=== PATIENT | female | born 1985 | race American Indian/Alaskan Native ===

== ENCOUNTER 2019-12-10 22:05 | Emergency (ER) | payer MEDICAID ==
[2019-12-10 22:16] VITALS: BP 105/83
[2019-12-10 22:42] LABS: Basophils % (Auto) 1.2 % (0.0-1.8); Eosinophils % (Auto) 0.9 % (0.0-4.3); Hematocrit 41.6 % (30.3-42.9); Hemoglobin 13.7 gm/dl (10.1-14.3); Lymphocytes # (Auto) 1.2 K/mm3 (1.2-5.4); Mean Corpuscular HGB Conc 33 % (30-34); Mean Corpuscular Volume 93 fl (79-97); Monocytes # (Auto) 0.5 K/mm3 (0.0-0.8); Monocytes % (Auto) 14.1 % (0.0-7.3); Platelet Count 194 K/mm3 (140-440); Red Blood Count 4.48 M/mm3 (3.65-5.03); Red Cell Distribution Width 12.6 % (13.2-15.2)
[2019-12-10 22:52] LABS: Bacteria,Urine 1+ /HPF (Negative); Bilirubin,Urine NEG (Negative); Blood,Urine NEG (Negative); Color,Urine Yellow (Yellow); Protein,Urine <15 mg/dL mg/dL (Negative)
[2019-12-10 22:58] LABS: Alanine Aminotransferase 19 units/L (7-56); Albumin 3.8 g/dL (3.9-5); BUN/Creatinine Ratio 7; Blood Urea Nitrogen 5 mg/dL (7-17); Calcium 8.5 mg/dL (8.4-10.2); Hemolysis Index 9
[2019-12-11] MEDS ORDERED: ACETAMINOPHEN 500 MG TAB PO ONE (00:19)
[2019-12-11] MEDS ORDERED: IBUPROFEN 600 MG TAB PO ONE (00:19)
[2019-12-11] MEDS ORDERED: CYCLOBENZAPRINE 10 MG TAB PO ONE (00:19)
[2019-12-11] MEDS ORDERED: ONDANSETRON 4 MG/2 ML INJ IV ONE (00:30)
[2019-12-11] MEDS ORDERED: FAMOTIDINE 20 MG/2 ML INJ IV ONE (00:30)
[2019-12-11] MEDS ORDERED: SODIUM CHLORIDE 0.9% 1000 ML 1,000 ML IV ONE (00:30)
--- NOTE | 2019-12-11 02:52 | Emergency Department Report ---
ED General Adult HPI - General Chief complaint: Nausea/Vomiting/Diarrhea Stated complaint: DEHYDRATION,MUSCLE LOWER BODY PAIN Source: patient Mode of arrival: Ambulatory Limitations: No Limitations - History of Present Illness Initial comments: Patient is a 34-year-old -[place] female with no past medical history except asthma who presents to the ED with complaint of acute onset persistent bilateral hip pain that radiates to the bilateral thighs, intermittent nausea a nd vomiting with diarrhea for 5 days. Patient also complains of persistent intermittent nasal and sinus congestion and frontal sinus pressure. Patient however states that the nausea and vomiting resolved about 24 hours ago but the bilateral hip pain has been persistent. Patient states that she has not been able to eat because of lack of appetite and suspected that she may have been dehydrated. Patient denies fall, traumatic injury, heavy lifting, abdominal pain, chest pain, dysuria, urinary frequency and urgency, fever, chills, cough, back pain, hematuria or vaginal bleeding. MD Complaint: Nausea, vomiting, diarrhea; bilateral hip and leg pains -: Sudden, days(s) (5) Location: abdomen, lower extremity (Bilateral hip and leg cramps) Radiation: non-radiation Severity scale (0 -10): 4 Quality: aching, sharp Consistency: constant Improves with: none Worsens with: none Associated Symptoms: denies other symptoms, loss of appetite, nausea/vomiting. denies: confusion, chest pain, cough, diaphoresis, fever/chills, malaise, rash, seizure, shortness of breath, syncope, weakness Treatments Prior to Arrival: none - Related Data Previous Rx's Medication Instructions Recorded Last Taken Type Cyclobenzaprine [Flexeril] 10 mg PO Q8H PRN #21 tablet 12/11/19 Unknown Rx Famotidine [Pepcid] 20 mg PO BID #30 tablet 12/11/19 Unknown Rx Ibuprofen [Motrin] 800 mg PO Q8HR PRN #30 tablet 12/11/19 Unknown Rx Ondansetron [Zofran Odt] 4 mg PO Q6HR PRN #15 tab.rapdis 12/11/19 Unknown Rx Allergies Allergy/AdvReac Type Severity Reaction Status Date / Time No Known Allergies Allergy Unverified 12/10/19 22:17 ED Review of Systems ROS: Stated complaint: DEHYDRATION,MUSCLE LOWER BODY PAIN Other details as noted in HPI Constitutional: denies: chills, fever Eyes: denies: eye pain, eye discharge, vision change ENT: congestion. denies: ear pain, throat pain Respiratory: denies: cough, shortness of breath, wheezing Cardiovascular: denies: chest pain, palpitations Endocrine: no symptoms reported Gastrointestinal: nausea, vomiting, diarrhea. denies: abdominal pain Genitourinary: denies: urgency, dysuria, discharge Musculoskeletal: arthralgia (Bilateral hip and leg pain). denies: back pain, joint swelling Skin: denies: rash, lesions Neurological: headache. denies: weakness, paresthesias Psychiatric: denies: anxiety, depression Hematological/Lymphatic: denies: easy bleeding, easy bruising ED Past Medical Hx - Past Medical History Previous Medical History?: Yes Hx Asthma: Yes - Surgical History Past Surgical History?: Yes Additional Surgical History: C-Sec X 2 - Social History Smoking Status: Never Smoker Substance Use Type: None - Medications Home Medications: Home Medications Medication Instructions Recorded Confirmed Last Taken Type Cyclobenzaprine [Flexeril] 10 mg PO Q8H PRN #21 tablet 12/11/19 Unknown Rx Famotidine [Pepcid] 20 mg PO BID #30 tablet 12/11/19 Unknown Rx Ibuprofen [Motrin] 800 mg PO Q8HR PRN #30 tablet 12/11/19 Unknown Rx Ondansetron [Zofran Odt] 4 mg PO Q6HR PRN #15 tab.rapdis 12/11/19 Unknown Rx ED Physical Exam - General Limitations: No Limitations General appearance: alert, in no apparent distress - Head Head exam: Present: atraumatic, normocephalic, normal inspection - Eye Eye exam: Present: normal appearance, PERRL, EOMI Pupils: Present: normal accommodation - ENT ENT exam: Present: normal orophraynx, mucous membranes moist, TM's normal bilaterally, normal external ear exam, other (Grossly congested nasal passages with palpable frontal and maxillary sinus tenderness) - Neck Neck exam: Present: normal inspection, full ROM. Absent: tenderness - Respiratory Respiratory exam: Present: normal lung sounds bilaterally. Absent: respiratory distress, wheezes, rales, stridor, chest wall tenderness, accessory muscle use, decreased breath sounds - Cardiovascular Cardiovascular Exam: Present: normal rhythm, tachycardia. Absent: systolic murmur, diastolic murmur, rubs, gallop - GI/Abdominal GI/Abdominal exam: Present: soft, normal bowel sounds. Absent: tenderness, guarding, hyperactive bowel sounds, hypoactive bowel sounds - Extremities Exam Extremities exam: Present: normal inspection, full ROM, tenderness (Palpable bilateral hip tenderness), normal capillary refill - Back Exam Back exam: Present: normal inspection, full ROM. Absent: tenderness, muscle spa sm, paraspinal tenderness - Neurological Exam Neurological exam: Present: alert, oriented X3, CN II-XII intact, normal gait, reflexes normal - Psychiatric Psychiatric exam: Present: normal affect, normal mood - Skin Skin exam: Present: warm, dry, intact, normal color. Absent: rash ED Course Vital Signs 12/10/19 22:12 Temperature 99.3 F Pulse Rate 102 H Respiratory 20 Rate Blood Pressure 105/83 O2 Sat by Pulse 97 Oximetry ED Medical Decision Making - Lab Data Result diagrams: 12/10/19 22:26 12/10/19 22:26 - Medical Decision Making This is a 34-year-old -[place] female with no past medical history except asthma who presents to the ED with complaint of acute onset persistent bilateral hip pain that radiates to the bilateral thighs, intermittent nausea and vomiting with diarrhea for 5 days. Patient also complains of persistent intermittent nasal and sinus congestion and frontal sinus pressure. Patient however states that the nausea and vomiting resolved about 24 hours ago but the bilateral hip pain has been persistent. Patient states that she has not been able to eat because of lack of appetite and suspected that she may have been dehydrated. In the ED, patient is alert and oriented x3 and is not in distress. Patient was treated for pain and also treated for nausea and vomiting in the ED, and also received normal saline 1 L IV bolus x1. On reevaluation, patient's pain resolved with medications. Patient felt better and was discharged home on medications. Patient was advised to return to the ED immediately if symptoms get worse. Patient was otherwise advised to follow-up with her primary care physician in 5 to 7 days for reevaluation. - Differential Diagnosis gastroenteritis; muscle strain; muscle spasm; URI; dehydration Critical care attestation.: If time is entered above; I have spent that time in minutes in the direct care of this critically ill patient, excluding procedure time. ED Disposition Clinical Impression: Nausea and vomiting in adult patient, Strain of muscle of hip, Muscle spasm of both lower legs Disposition: DC-01 TO HOME OR SELFCARE Is pt being admited?: No Does the pt Need Aspirin: No Condition: Stable Instructions: Muscle Strain (ED), Muscle Spasm (ED), Acute Nausea and Vomiting (ED) Additional Instructions: Take medication with food, drink plenty of fluids and follow-up with your primar y care physician in 5 to 7 days for reevaluation. Return to the ED immediately if symptoms get worse. Prescriptions: Cyclobenzaprine [Flexeril] 10 mg PO Q8H PRN #21 tablet PRN Reason: Muscle Spasm Ibuprofen [Motrin] 800 mg PO Q8HR PRN #30 tablet PRN Reason: Pain , Severe (7-10) Famotidine [Pepcid] 20 mg PO BID #30 tablet Ondansetron [Zofran Odt] 4 mg PO Q6HR PRN #15 tab.rapdis PRN Reason: Nausea Referrals: [facility] [Provider Group] - 3-5 Days Forms: Work/School Release Form(ED) Time of Disposition: 02:56 Print Language: ARMENIAN
== END 2019-12-11 03:55 | disposition home or self-care (01) ==
LOC: ED 22:05
DX: S76.019A Strain of muscle, fascia and tendon of unspecified hip, initial encounter (principal); M62.838 Other muscle spasm; R11.2 Nausea with vomiting, unspecified; J45.909 Unspecified asthma, uncomplicated; Z98.890 Other specified postprocedural states; Z79.1 Long term (current) use of non-steroidal anti-inflammatories (NSAID); Z79.899 Other long term (current) drug therapy; X58.XXXA Exposure to other specified factors, initial encounter; Y93.89 Activity, other specified; Y92.89 Other specified places as the place of occurrence of the external cause; Y99.8 Other external cause status
CPT/HCPCS: 36415; 80053; 81001; 84703; 85025; 96361; 96374; 96375; 99283; J2405; J7030